=== PATIENT | male | born 1965 | race Caucasian/White ===

== ENCOUNTER → 2019-06-18 | Outpatient (CLI) | payer OTHER | END | disposition home or self-care (01) | LOC: HBOWC 07:43 | PROVIDERS: ATTEND Emergency Medicine | DX: T87.89 Other complications of amputation stump (principal); L98.492 Non-pressure chronic ulcer of skin of other sites with fat layer exposed; E78.5 Hyperlipidemia, unspecified; F12.10 Cannabis abuse, uncomplicated; F17.200 Nicotine dependence, unspecified, uncomplicated; Z86.73 Personal history of transient ischemic attack (TIA), and cerebral infarction without residual deficits; Z79.01 Long term (current) use of anticoagulants; Y83.5 Amputation of limb(s) as the cause of abnormal reaction of the patient, or of later complication, without mention of misadventure at the time of the procedure; Y92.89 Other specified places as the place of occurrence of the external cause | CPT/HCPCS: 11042 ==

== ENCOUNTER → 2019-06-25 | Outpatient (CLI) | payer OTHER ==
[~2019-06-25] MED LIST: LIDOCAINE 2% 5 ML JELLY TP ONE
== END | disposition home or self-care (01) ==
LOC: HBOWC 10:13
PROVIDERS: ATTEND Emergency Medicine
DX: T87.89 Other complications of amputation stump (principal); L98.492 Non-pressure chronic ulcer of skin of other sites with fat layer exposed; E78.5 Hyperlipidemia, unspecified; F12.10 Cannabis abuse, uncomplicated; F17.200 Nicotine dependence, unspecified, uncomplicated; Z86.73 Personal history of transient ischemic attack (TIA), and cerebral infarction without residual deficits; Z79.01 Long term (current) use of anticoagulants; Y83.5 Amputation of limb(s) as the cause of abnormal reaction of the patient, or of later complication, without mention of misadventure at the time of the procedure; Y92.89 Other specified places as the place of occurrence of the external cause
CPT/HCPCS: 11043

== ENCOUNTER → 2019-07-02 | Outpatient (CLI) | payer OTHER | END | disposition home or self-care (01) | LOC: HBOWC 10:00 | PROVIDERS: ATTEND Emergency Medicine | DX: T87.89 Other complications of amputation stump (principal); L98.492 Non-pressure chronic ulcer of skin of other sites with fat layer exposed; T23.022D Burn of unspecified degree of single left finger (nail) except thumb, subsequent encounter; E78.5 Hyperlipidemia, unspecified; F12.10 Cannabis abuse, uncomplicated; I96 Gangrene, not elsewhere classified; M86.8X4 Other osteomyelitis, hand; F17.200 Nicotine dependence, unspecified, uncomplicated; Z86.73 Personal history of transient ischemic attack (TIA), and cerebral infarction without residual deficits; Z79.01 Long term (current) use of anticoagulants; T31.0 Burns involving less than 10% of body surface; Y83.5 Amputation of limb(s) as the cause of abnormal reaction of the patient, or of later complication, without mention of misadventure at the time of the procedure; X08.8XXD Exposure to other specified smoke, fire and flames, subsequent encounter | CPT/HCPCS: 11042; 11045 ==

== ENCOUNTER → 2019-07-08 | Outpatient (CLI) | payer OTHER | END | disposition home or self-care (01) | LOC: HBOWC 10:17 | PROVIDERS: ATTEND Surgery Plastic and Reconstructive Surgery | DX: T87.89 Other complications of amputation stump (principal); L98.492 Non-pressure chronic ulcer of skin of other sites with fat layer exposed; T23.022D Burn of unspecified degree of single left finger (nail) except thumb, subsequent encounter; E78.5 Hyperlipidemia, unspecified; F12.10 Cannabis abuse, uncomplicated; I96 Gangrene, not elsewhere classified; M86.8X4 Other osteomyelitis, hand; F17.200 Nicotine dependence, unspecified, uncomplicated; Z86.73 Personal history of transient ischemic attack (TIA), and cerebral infarction without residual deficits; Z79.01 Long term (current) use of anticoagulants; T31.0 Burns involving less than 10% of body surface; Y83.5 Amputation of limb(s) as the cause of abnormal reaction of the patient, or of later complication, without mention of misadventure at the time of the procedure; X08.8XXD Exposure to other specified smoke, fire and flames, subsequent encounter | CPT/HCPCS: 11043 ==

== ENCOUNTER → 2019-07-23 | Outpatient (CLI) | payer OTHER | END | disposition home or self-care (01) | LOC: HBOWC 09:48 | PROVIDERS: ATTEND Emergency Medicine | DX: T87.89 Other complications of amputation stump (principal); L98.492 Non-pressure chronic ulcer of skin of other sites with fat layer exposed; T23.022D Burn of unspecified degree of single left finger (nail) except thumb, subsequent encounter; T31.0 Burns involving less than 10% of body surface; E78.5 Hyperlipidemia, unspecified; I73.01 Raynaud's syndrome with gangrene; M86.8X4 Other osteomyelitis, hand; F12.10 Cannabis abuse, uncomplicated; F17.200 Nicotine dependence, unspecified, uncomplicated; Z86.73 Personal history of transient ischemic attack (TIA), and cerebral infarction without residual deficits; Z79.01 Long term (current) use of anticoagulants; Z59.0 Homelessness; Y83.5 Amputation of limb(s) as the cause of abnormal reaction of the patient, or of later complication, without mention of misadventure at the time of the procedure; X08.8XXD Exposure to other specified smoke, fire and flames, subsequent encounter | CPT/HCPCS: 97597 ==

== ENCOUNTER → 2019-07-30 | Outpatient (CLI) | payer OTHER ==
[2019-08-01 15:08] LABS: GLUCOMETER DEV NAME(LOC) HBW.; GLUCOSE,POINT OF CARE 115 MG/DL (70-110)
== END | disposition home or self-care (01) ==
LOC: HBOWC 09:22
PROVIDERS: ATTEND Emergency Medicine
DX: T87.89 Other complications of amputation stump (principal); L98.492 Non-pressure chronic ulcer of skin of other sites with fat layer exposed; T23.022D Burn of unspecified degree of single left finger (nail) except thumb, subsequent encounter; T31.0 Burns involving less than 10% of body surface; E78.5 Hyperlipidemia, unspecified; I73.01 Raynaud's syndrome with gangrene; M86.8X4 Other osteomyelitis, hand; F12.10 Cannabis abuse, uncomplicated; F17.200 Nicotine dependence, unspecified, uncomplicated; Z86.73 Personal history of transient ischemic attack (TIA), and cerebral infarction without residual deficits; Z79.01 Long term (current) use of anticoagulants; Z59.0 Homelessness; Y83.5 Amputation of limb(s) as the cause of abnormal reaction of the patient, or of later complication, without mention of misadventure at the time of the procedure; X08.8XXD Exposure to other specified smoke, fire and flames, subsequent encounter
CPT/HCPCS: 11042

== ENCOUNTER → 2019-08-06 | Outpatient (CLI) | payer OTHER | END | disposition home or self-care (01) | LOC: HBOWC 10:05 | PROVIDERS: ATTEND Emergency Medicine | DX: T87.89 Other complications of amputation stump (principal); L98.492 Non-pressure chronic ulcer of skin of other sites with fat layer exposed; T23.022D Burn of unspecified degree of single left finger (nail) except thumb, subsequent encounter; T31.0 Burns involving less than 10% of body surface; E78.5 Hyperlipidemia, unspecified; I73.01 Raynaud's syndrome with gangrene; M86.641 Other chronic osteomyelitis, right hand; F12.10 Cannabis abuse, uncomplicated; F17.200 Nicotine dependence, unspecified, uncomplicated; Z86.73 Personal history of transient ischemic attack (TIA), and cerebral infarction without residual deficits; Z79.01 Long term (current) use of anticoagulants; Z59.0 Homelessness; Y83.5 Amputation of limb(s) as the cause of abnormal reaction of the patient, or of later complication, without mention of misadventure at the time of the procedure; X08.8XXD Exposure to other specified smoke, fire and flames, subsequent encounter | CPT/HCPCS: 11042 ==

== ENCOUNTER → 2019-08-12 | Outpatient (CLI) | payer OTHER | END | disposition home or self-care (01) | LOC: HBOWC 09:14 | PROVIDERS: ATTEND Surgery Plastic and Reconstructive Surgery | DX: T87.89 Other complications of amputation stump (principal); L98.492 Non-pressure chronic ulcer of skin of other sites with fat layer exposed; T23.022D Burn of unspecified degree of single left finger (nail) except thumb, subsequent encounter; T31.0 Burns involving less than 10% of body surface; E78.5 Hyperlipidemia, unspecified; I73.01 Raynaud's syndrome with gangrene; M86.641 Other chronic osteomyelitis, right hand; F12.10 Cannabis abuse, uncomplicated; F17.200 Nicotine dependence, unspecified, uncomplicated; Z86.73 Personal history of transient ischemic attack (TIA), and cerebral infarction without residual deficits; Z79.01 Long term (current) use of anticoagulants; Z59.0 Homelessness; Y83.5 Amputation of limb(s) as the cause of abnormal reaction of the patient, or of later complication, without mention of misadventure at the time of the procedure | CPT/HCPCS: 11043 ==

== ENCOUNTER → 2019-08-27 | Outpatient (CLI) | payer OTHER | END | disposition home or self-care (01) | LOC: HBOWC 09:14 | PROVIDERS: ATTEND Emergency Medicine | DX: T87.89 Other complications of amputation stump (principal); L98.492 Non-pressure chronic ulcer of skin of other sites with fat layer exposed; T23.022D Burn of unspecified degree of single left finger (nail) except thumb, subsequent encounter; T31.0 Burns involving less than 10% of body surface; E78.5 Hyperlipidemia, unspecified; I73.01 Raynaud's syndrome with gangrene; M86.641 Other chronic osteomyelitis, right hand; F12.10 Cannabis abuse, uncomplicated; F17.200 Nicotine dependence, unspecified, uncomplicated; Z86.73 Personal history of transient ischemic attack (TIA), and cerebral infarction without residual deficits; Z79.01 Long term (current) use of anticoagulants; Z59.0 Homelessness; Y83.5 Amputation of limb(s) as the cause of abnormal reaction of the patient, or of later complication, without mention of misadventure at the time of the procedure | CPT/HCPCS: 11042 ==

== ENCOUNTER → 2019-09-03 | Outpatient (CLI) | payer OTHER | END | disposition home or self-care (01) | LOC: HBOWC 09:07 | PROVIDERS: ATTEND Emergency Medicine | DX: T87.89 Other complications of amputation stump (principal); L98.492 Non-pressure chronic ulcer of skin of other sites with fat layer exposed; T23.022D Burn of unspecified degree of single left finger (nail) except thumb, subsequent encounter; T31.0 Burns involving less than 10% of body surface; E78.5 Hyperlipidemia, unspecified; I73.01 Raynaud's syndrome with gangrene; M86.641 Other chronic osteomyelitis, right hand; F12.10 Cannabis abuse, uncomplicated; F17.200 Nicotine dependence, unspecified, uncomplicated; Z86.73 Personal history of transient ischemic attack (TIA), and cerebral infarction without residual deficits; Z79.01 Long term (current) use of anticoagulants; Z59.0 Homelessness; Y83.5 Amputation of limb(s) as the cause of abnormal reaction of the patient, or of later complication, without mention of misadventure at the time of the procedure | CPT/HCPCS: 97597 ==

== ENCOUNTER → 2019-09-09 | Outpatient (CLI) | payer OTHER | END | disposition home or self-care (01) | LOC: HBOWC 11:04 | PROVIDERS: ATTEND Surgery Plastic and Reconstructive Surgery | DX: T87.89 Other complications of amputation stump (principal); L98.492 Non-pressure chronic ulcer of skin of other sites with fat layer exposed; T23.022D Burn of unspecified degree of single left finger (nail) except thumb, subsequent encounter; T31.0 Burns involving less than 10% of body surface; E78.5 Hyperlipidemia, unspecified; I73.01 Raynaud's syndrome with gangrene; M86.641 Other chronic osteomyelitis, right hand; F12.10 Cannabis abuse, uncomplicated; F17.200 Nicotine dependence, unspecified, uncomplicated; Z86.73 Personal history of transient ischemic attack (TIA), and cerebral infarction without residual deficits; Z79.01 Long term (current) use of anticoagulants; Z59.0 Homelessness; Y83.5 Amputation of limb(s) as the cause of abnormal reaction of the patient, or of later complication, without mention of misadventure at the time of the procedure | CPT/HCPCS: 11043 ==

== ENCOUNTER → 2019-09-17 | Outpatient (CLI) | payer OTHER | END | disposition home or self-care (01) | LOC: HBOWC 09:25 | PROVIDERS: ATTEND Emergency Medicine | DX: T87.89 Other complications of amputation stump (principal); L98.492 Non-pressure chronic ulcer of skin of other sites with fat layer exposed; S61.203D Unspecified open wound of left middle finger without damage to nail, subsequent encounter; E78.5 Hyperlipidemia, unspecified; I73.01 Raynaud's syndrome with gangrene; M86.641 Other chronic osteomyelitis, right hand; L84 Corns and callosities; F12.10 Cannabis abuse, uncomplicated; F17.200 Nicotine dependence, unspecified, uncomplicated; Z86.73 Personal history of transient ischemic attack (TIA), and cerebral infarction without residual deficits; Z79.01 Long term (current) use of anticoagulants; Z59.0 Homelessness; Y83.5 Amputation of limb(s) as the cause of abnormal reaction of the patient, or of later complication, without mention of misadventure at the time of the procedure; X58.XXXD Exposure to other specified factors, subsequent encounter | CPT/HCPCS: 11042 ==

== ENCOUNTER → 2019-09-23 | Outpatient (CLI) | payer OTHER | END | disposition home or self-care (01) | LOC: HBOWC 10:00 | PROVIDERS: ATTEND Surgery Plastic and Reconstructive Surgery | DX: T87.89 Other complications of amputation stump (principal); L98.492 Non-pressure chronic ulcer of skin of other sites with fat layer exposed; S61.203D Unspecified open wound of left middle finger without damage to nail, subsequent encounter; E78.5 Hyperlipidemia, unspecified; I73.01 Raynaud's syndrome with gangrene; M86.641 Other chronic osteomyelitis, right hand; L84 Corns and callosities; F12.10 Cannabis abuse, uncomplicated; F17.200 Nicotine dependence, unspecified, uncomplicated; Z86.73 Personal history of transient ischemic attack (TIA), and cerebral infarction without residual deficits; Z79.01 Long term (current) use of anticoagulants; Z59.0 Homelessness; X58.XXXD Exposure to other specified factors, subsequent encounter; Y83.5 Amputation of limb(s) as the cause of abnormal reaction of the patient, or of later complication, without mention of misadventure at the time of the procedure | CPT/HCPCS: 11043 ==

== ENCOUNTER → 2019-10-01 | Outpatient (CLI) | payer OTHER | END | disposition home or self-care (01) | LOC: HBOWC 09:07 | PROVIDERS: ATTEND Emergency Medicine | DX: T87.89 Other complications of amputation stump (principal); L98.492 Non-pressure chronic ulcer of skin of other sites with fat layer exposed; S61.203D Unspecified open wound of left middle finger without damage to nail, subsequent encounter; E78.5 Hyperlipidemia, unspecified; E11.69 Type 2 diabetes mellitus with other specified complication; M86.641 Other chronic osteomyelitis, right hand; L84 Corns and callosities; E11.52 Type 2 diabetes mellitus with diabetic peripheral angiopathy with gangrene; I73.01 Raynaud's syndrome with gangrene; F12.10 Cannabis abuse, uncomplicated; F17.200 Nicotine dependence, unspecified, uncomplicated; Z86.73 Personal history of transient ischemic attack (TIA), and cerebral infarction without residual deficits; Z79.01 Long term (current) use of anticoagulants; Z59.0 Homelessness; Z79.82 Long term (current) use of aspirin; X58.XXXD Exposure to other specified factors, subsequent encounter; Y83.5 Amputation of limb(s) as the cause of abnormal reaction of the patient, or of later complication, without mention of misadventure at the time of the procedure | CPT/HCPCS: 11042 ==

== ENCOUNTER → 2019-10-08 | Outpatient (CLI) | payer OTHER | END | disposition home or self-care (01) | LOC: HBOWC 09:03 | PROVIDERS: ATTEND Emergency Medicine | DX: T87.81 Dehiscence of amputation stump (principal); L98.492 Non-pressure chronic ulcer of skin of other sites with fat layer exposed; S61.203D Unspecified open wound of left middle finger without damage to nail, subsequent encounter; E78.5 Hyperlipidemia, unspecified; M86.641 Other chronic osteomyelitis, right hand; I73.01 Raynaud's syndrome with gangrene; L84 Corns and callosities; F12.10 Cannabis abuse, uncomplicated; F17.200 Nicotine dependence, unspecified, uncomplicated; Z86.73 Personal history of transient ischemic attack (TIA), and cerebral infarction without residual deficits; Z79.01 Long term (current) use of anticoagulants; Z79.82 Long term (current) use of aspirin; Z59.0 Homelessness; X58.XXXD Exposure to other specified factors, subsequent encounter; Y83.5 Amputation of limb(s) as the cause of abnormal reaction of the patient, or of later complication, without mention of misadventure at the time of the procedure | CPT/HCPCS: 11042 ==

== ENCOUNTER → 2019-10-22 | Outpatient (CLI) | payer OTHER | END | disposition home or self-care (01) | LOC: HBOWC 09:00 | PROVIDERS: ATTEND Emergency Medicine | DX: T87.81 Dehiscence of amputation stump (principal); E11.622 Type 2 diabetes mellitus with other skin ulcer; L98.492 Non-pressure chronic ulcer of skin of other sites with fat layer exposed; S61.203D Unspecified open wound of left middle finger without damage to nail, subsequent encounter; E78.5 Hyperlipidemia, unspecified; E11.69 Type 2 diabetes mellitus with other specified complication; M86.641 Other chronic osteomyelitis, right hand; E11.52 Type 2 diabetes mellitus with diabetic peripheral angiopathy with gangrene; I73.01 Raynaud's syndrome with gangrene; L84 Corns and callosities; F12.10 Cannabis abuse, uncomplicated; F17.200 Nicotine dependence, unspecified, uncomplicated; Z79.01 Long term (current) use of anticoagulants; Z79.82 Long term (current) use of aspirin; Z86.73 Personal history of transient ischemic attack (TIA), and cerebral infarction without residual deficits; Z59.0 Homelessness; X58.XXXD Exposure to other specified factors, subsequent encounter; Y83.5 Amputation of limb(s) as the cause of abnormal reaction of the patient, or of later complication, without mention of misadventure at the time of the procedure ==

== ENCOUNTER → 2019-11-05 | Outpatient (CLI) | payer OTHER | END | disposition home or self-care (01) | LOC: HBOWC 09:18 | PROVIDERS: ATTEND Emergency Medicine | DX: T87.81 Dehiscence of amputation stump (principal); E11.622 Type 2 diabetes mellitus with other skin ulcer; L98.492 Non-pressure chronic ulcer of skin of other sites with fat layer exposed; S61.203D Unspecified open wound of left middle finger without damage to nail, subsequent encounter; E78.5 Hyperlipidemia, unspecified; E11.69 Type 2 diabetes mellitus with other specified complication; M86.641 Other chronic osteomyelitis, right hand; E11.52 Type 2 diabetes mellitus with diabetic peripheral angiopathy with gangrene; I73.01 Raynaud's syndrome with gangrene; L84 Corns and callosities; F12.10 Cannabis abuse, uncomplicated; F17.200 Nicotine dependence, unspecified, uncomplicated; Z79.01 Long term (current) use of anticoagulants; Z79.82 Long term (current) use of aspirin; Z86.73 Personal history of transient ischemic attack (TIA), and cerebral infarction without residual deficits; Z59.0 Homelessness; X58.XXXD Exposure to other specified factors, subsequent encounter; Y83.5 Amputation of limb(s) as the cause of abnormal reaction of the patient, or of later complication, without mention of misadventure at the time of the procedure | CPT/HCPCS: 11042 ==

== ENCOUNTER → 2019-11-13 | Outpatient (CLI) | payer OTHER | END | disposition home or self-care (01) | LOC: HBOWC 08:57 | PROVIDERS: ATTEND Internal Medicine | DX: T87.81 Dehiscence of amputation stump (principal); E11.622 Type 2 diabetes mellitus with other skin ulcer; L98.492 Non-pressure chronic ulcer of skin of other sites with fat layer exposed; S61.203D Unspecified open wound of left middle finger without damage to nail, subsequent encounter; E78.5 Hyperlipidemia, unspecified; E11.69 Type 2 diabetes mellitus with other specified complication; M86.641 Other chronic osteomyelitis, right hand; E11.52 Type 2 diabetes mellitus with diabetic peripheral angiopathy with gangrene; I73.01 Raynaud's syndrome with gangrene; L84 Corns and callosities; F12.10 Cannabis abuse, uncomplicated; F17.200 Nicotine dependence, unspecified, uncomplicated; Z79.01 Long term (current) use of anticoagulants; Z79.82 Long term (current) use of aspirin; Z86.73 Personal history of transient ischemic attack (TIA), and cerebral infarction without residual deficits; Z59.0 Homelessness; Y83.5 Amputation of limb(s) as the cause of abnormal reaction of the patient, or of later complication, without mention of misadventure at the time of the procedure ==

== ENCOUNTER → 2019-11-26 | Outpatient (CLI) | payer OTHER | END | disposition home or self-care (01) | LOC: HBOWC 09:04 | PROVIDERS: ATTEND Emergency Medicine | DX: T87.81 Dehiscence of amputation stump (principal); E11.622 Type 2 diabetes mellitus with other skin ulcer; L98.492 Non-pressure chronic ulcer of skin of other sites with fat layer exposed; S61.203D Unspecified open wound of left middle finger without damage to nail, subsequent encounter; E78.5 Hyperlipidemia, unspecified; E11.69 Type 2 diabetes mellitus with other specified complication; M86.641 Other chronic osteomyelitis, right hand; E11.52 Type 2 diabetes mellitus with diabetic peripheral angiopathy with gangrene; I73.01 Raynaud's syndrome with gangrene; L84 Corns and callosities; F12.10 Cannabis abuse, uncomplicated; F17.200 Nicotine dependence, unspecified, uncomplicated; Z79.01 Long term (current) use of anticoagulants; Z79.82 Long term (current) use of aspirin; Z86.73 Personal history of transient ischemic attack (TIA), and cerebral infarction without residual deficits; Z59.0 Homelessness; Y83.5 Amputation of limb(s) as the cause of abnormal reaction of the patient, or of later complication, without mention of misadventure at the time of the procedure | CPT/HCPCS: 11042 ==

== ENCOUNTER → 2019-12-03 | Outpatient (CLI) | payer OTHER | END | disposition home or self-care (01) | LOC: HBOWC 08:44 | PROVIDERS: ATTEND Emergency Medicine | DX: S61.203A Unspecified open wound of left middle finger without damage to nail, initial encounter (principal); M18.9 Osteoarthritis of first carpometacarpal joint, unspecified; M86.641 Other chronic osteomyelitis, right hand; M79.9 Soft tissue disorder, unspecified; X58.XXXA Exposure to other specified factors, initial encounter; Y93.89 Activity, other specified; Y92.89 Other specified places as the place of occurrence of the external cause; Y99.8 Other external cause status ==

== ENCOUNTER → 2019-12-10 | Outpatient (CLI) | payer OTHER | END | disposition home or self-care (01) | LOC: HBOWC 10:05 | PROVIDERS: ATTEND Emergency Medicine | DX: T87.81 Dehiscence of amputation stump (principal); E11.622 Type 2 diabetes mellitus with other skin ulcer; L98.492 Non-pressure chronic ulcer of skin of other sites with fat layer exposed; S61.203D Unspecified open wound of left middle finger without damage to nail, subsequent encounter; E78.5 Hyperlipidemia, unspecified; E11.69 Type 2 diabetes mellitus with other specified complication; M86.641 Other chronic osteomyelitis, right hand; E11.52 Type 2 diabetes mellitus with diabetic peripheral angiopathy with gangrene; I73.01 Raynaud's syndrome with gangrene; M18.9 Osteoarthritis of first carpometacarpal joint, unspecified; L84 Corns and callosities; F12.10 Cannabis abuse, uncomplicated; F17.200 Nicotine dependence, unspecified, uncomplicated; Z79.01 Long term (current) use of anticoagulants; Z79.82 Long term (current) use of aspirin; Z86.73 Personal history of transient ischemic attack (TIA), and cerebral infarction without residual deficits; Z59.0 Homelessness; Y83.5 Amputation of limb(s) as the cause of abnormal reaction of the patient, or of later complication, without mention of misadventure at the time of the procedure ==

== ENCOUNTER → 2020-01-07 | Outpatient (CLI) | payer OTHER | END | disposition home or self-care (01) | LOC: HBOWC 10:01 | PROVIDERS: ATTEND Emergency Medicine | DX: E11.622 Type 2 diabetes mellitus with other skin ulcer (principal); L98.491 Non-pressure chronic ulcer of skin of other sites limited to breakdown of skin; S61.203D Unspecified open wound of left middle finger without damage to nail, subsequent encounter; E78.5 Hyperlipidemia, unspecified; E11.69 Type 2 diabetes mellitus with other specified complication; M86.641 Other chronic osteomyelitis, right hand; E11.52 Type 2 diabetes mellitus with diabetic peripheral angiopathy with gangrene; I73.01 Raynaud's syndrome with gangrene; M18.9 Osteoarthritis of first carpometacarpal joint, unspecified; L84 Corns and callosities; F12.10 Cannabis abuse, uncomplicated; F17.200 Nicotine dependence, unspecified, uncomplicated; Z79.01 Long term (current) use of anticoagulants; Z79.82 Long term (current) use of aspirin; Z86.73 Personal history of transient ischemic attack (TIA), and cerebral infarction without residual deficits; Z59.0 Homelessness; Y83.5 Amputation of limb(s) as the cause of abnormal reaction of the patient, or of later complication, without mention of misadventure at the time of the procedure ==

== ENCOUNTER 2020-11-28 20:10 | Inpatient (IN) | payer OTHER ==
[~2020-11-28] VITALS: Ht 170.2 cm; Wt 84.0 kg
[2020-11-28] MEDS ORDERED: 0.9% SODIUM CHLORIDE 10 ML SYRINGE IVP PRN (21:15)
[2020-11-28 22:03] LABS: HEMATOCRIT 39.9 % (41-53); HEMOGLOBIN 11.8 g/dL (13.5-17.5); MEAN CORPUSCULAR HEMOGLOBIN 22.2 pg (26.0-34.0); MEAN CORPUSCULAR HGB CONC 29.6 G/dL (31.0-37.0); MEAN CORPUSCULAR VOLUME 75 fL (80-100); PLATELET COUNT (AUTO) 142 K/uL (150-450); RED BLOOD CELL COUNT(AUTO) 5.31 MIL/uL (4.50-5.90); RED CELL DISTRIBUTION WIDTH 31.7 % (11.5-14.5)
[2020-11-28 22:21] LABS: D-DIMER 16.93 mg/L FEU (0.00-0.50); PROTHROMBIN TIME 39.7 SEC (9.4-11.6)
[2020-11-28 22:23] LABS: LACTIC ACID 6.6 mmol/L (0.4-2.0)
[2020-11-28 22:24] LABS: INR 4.2 (0.9-1.1)
[2020-11-28 22:29] LABS: BAND NEUTROPHILS % (MANUAL) 2 % (0-5); LYMPHOCYTES % (MANUAL) 9 % (22-44); MONOCYTES % (MANUAL) 5 % (2-9); SEGMENTED NEUTROPHILS % 84 % (40-70); WBC MORPHOLOGY TOXIC VACUOLATION
[2020-11-28 22:34] LABS: ALANINE AMINOTRANSFERASE 464 U/L (12-78); ALBUMIN 2.5 g/dL (3.4-5.0); ALKALINE PHOSPHATASE 192 U/L (46-116); ANION GAP 19 mmol/L (8-16); BILIRUBIN,TOTAL 11.6 mg/dL (0.1-1.0); CALCIUM, TOTAL 8.6 mg/dL (8.8-10.5); CARBON DIOXIDE 26 mmol/L (22-29); CHLORIDE 85 mmol/L (98-107); CREATINE KINASE, TOTAL ONLY 480 U/L (39-308); CREATININE 2.55 mg/dL (0.60-1.30); GLOMERULAR FILTR. RATE CALC 26 mL/min (>60); GLUCOSE,RANDOM 101 mg/dL (70-110); SODIUM SERUM 130 mmol/L (136-145); TOTAL PROTEIN, SERUM 6.3 g/dL (6.4-8.2); UREA NITROGEN, BLOOD 94 mg/dL (7-18)
[2020-11-28 22:36] LABS: ASPARTATE AMINOTRANSFERASE 1130 U/L (15-37); POTASSIUM 6.2 mmol/L (3.5-5.1)
[2020-11-28 22:39] LABS: COVID AG,FIA SOURCE NASOPHARYNGEAL
[2020-11-28] MEDS ORDERED: FUROSEMIDE 40 MG/4 ML VIAL IVP ONE (22:45)
[2020-11-28] MEDS ORDERED: VANCOMYCIN HCL 1.5 GM in DEXTROSE 5%-WATER 250 ML IV ONE (22:45)
[2020-11-28] MEDS ORDERED: INSULIN REGULAR, HUMAN 100 UNITS/ML IVP ONE (22:45)
[2020-11-28] MEDS ORDERED: DEXTROSE 50%-WATER 25 GM/50 ML SYRINGE IVP ONE (22:45)
[2020-11-28] MEDS ORDERED: CALCIUM GLUCONATE 0.465 MEQ/ML 10 ML VIAL IVP ONE (22:45)
[2020-11-28] MEDS ORDERED: SODIUM BICARBONATE [ADULT] 8.4% 50 MEQ/50 ML SYRINGE IVP ONE (22:45)
[2020-11-28] MEDS ORDERED: PIPERACILLIN/TAZO 3.375 GM/D5W 50 ML IV ONE (23:00)
[2020-11-28] MEDS ORDERED: SODIUM CHLORIDE 0.9% 250 ML IV ONE (23:00)
[2020-11-28 23:10] LABS: ACETAMINOPHEN < 2 mcg/mL (10-30); DIGOXIN 1.66 ng/mL (0.90-2.00); FREE T4 (FREE THYROXINE) 1.23 ng/dL (0.76-1.46); THYROID STIMULATING HORMONE 9.34 uIU/mL (0.36-3.74)
[2020-11-28 23:11] LABS: B-TYPE NATRIURETIC PEPTIDE 2650 pg/mL (0-100)
[2020-11-28 23:13] LABS: SALICYLATE < 2.8 mg/dL (2.8-20.0)
[2020-11-28 23:13] LABS: INFLUENZA TYPE A NEGATIVE FOR TYPE A (NEGATIVE); INFLUENZA TYPE B NEGATIVE FOR TYPE B (NEGATIVE)
[2020-11-28 23:58] LABS: APPEARANCE,URINE CLOUDY (CLEAR); GLUCOSE, URINE (UA) NEGATIVE (NEGATIVE); KETONES,URINE TRACE mg/dL (NEGATIVE); LEUKOCYTE ESTERASE ,URINE NEGATIVE (NEGATIVE); NITRATE,URINE NEGATIVE (NEGATIVE); OCCULT BLOOD,URINE TRACE (NEGATIVE); PROTEIN,URINE NEGATIVE (NEGATIVE)
[2020-11-29] VITALS (9 sets, daily range): BP systolic 90–124; BP diastolic 51–68
[2020-11-29 00:03] LABS: AMPHET/METH SCREEN,URINE NEGATIVE (NEGATIVE); BARBITURATE SCREEN, URINE NEGATIVE (NEGATIVE); BENZODIAZEPINES SCREEN,URINE NEGATIVE (NEGATIVE); CANNABINOID SCREEN,URINE NEGATIVE (NEGATIVE); COCAINE SCREEN,URINE NEGATIVE (NEGATIVE); METHADONE SCREEN, URINE NEGATIVE (NEGATIVE); OPIATE SCREEN,URINE NEGATIVE (NEGATIVE)
[2020-11-29 00:04] LABS: BILIRUBIN,URINE PRELIM. POSITIVE (NEGATIVE); PHENCYCLIDINE SCREEN,URINE NEGATIVE (NEGATIVE)
[2020-11-29 00:17] LABS: BACTERIA,URINE Few /HPF (None Seen); RBC,URINE 0-2 /HPF (0-2)
[2020-11-29] MEDS ORDERED: ALBUTEROL SULFATE 5 MG/ML 20 ML NEB SOLN [BULK] NEB ONE (00:30)
[2020-11-29] MEDS ORDERED: SODIUM CHLORIDE 0.9% 250 ML IV ONE ×2 (00:30→23:15)
[2020-11-29] MEDS ORDERED: 0.9% SODIUM CHLORIDE 5 ML NEB SOLUTION NEB ONE (01:18)
[2020-11-29 02:21] LABS: CALCIUM, TOTAL 8.5 mg/dL (8.8-10.5); CREATININE 2.61 mg/dL (0.60-1.30); POTASSIUM 5.8 mmol/L (3.5-5.1)
[2020-11-29] MEDS ORDERED: DEXTROSE 50%-WATER 25 GM/50 ML SYRINGE IVP ONE (03:45)
[2020-11-29] MEDS ORDERED: INSULIN REGULAR, HUMAN 100 UNITS/ML IVP ONE (03:45)
[2020-11-29] MEDS ORDERED: NOREPINEPHRINE 4 MG/D5%-WATER 250 ML IV PRN (04:00)
[2020-11-29] MEDS ORDERED: SODIUM CHLORIDE 0.9% 2,300 ML IV ONE (04:00)
[2020-11-29] MEDS ORDERED: SODIUM POLYSTYRENE SULFONATE 15 GM/60 ML SUSPENSION BOTTLE PO ONE (04:00)
[2020-11-29] MEDS ORDERED: LACTULOSE 20 GM/30 ML SOLUTION UDCUP PO ONE (04:00)
[2020-11-29] MEDS ORDERED: PANT-31 PO (04:44)
[2020-11-29] MEDS ORDERED: SENN8.6T20 PO (04:44)
[2020-11-29] MEDS ORDERED: DULO-8 PO (04:44)
[2020-11-29] MEDS ORDERED: ONDA-104 PO (04:44)
[2020-11-29] MEDS ORDERED: MIRT-89 PO (04:44)
[2020-11-29] MEDS ORDERED: METO50 PO (04:44)
[2020-11-29] MEDS ORDERED: OLAN5TAB2 PO (04:44)
[2020-11-29] MEDS ORDERED: LIDO700A15 TP (04:44)
[2020-11-29] MEDS ORDERED: DIGO125T84 PO (04:44)
[2020-11-29] MEDS ORDERED: ACET-784 PO (04:44)
[2020-11-29] MEDS ORDERED: CEFU250T58 PO (04:44)
[2020-11-29] MEDS ORDERED: SILDENAFIL 20 MG CONTEPI (04:44)
[2020-11-29] MEDS ORDERED: BUME1TAB34 PO (04:44)
[2020-11-29] MEDS ORDERED: PHYTONADIONE 10 MG/1 ML AMP SQ ONE (04:45)
[2020-11-29] MEDS ORDERED: 0.9% SODIUM CHLORIDE 10 ML SYRINGE IVP PRN (04:45)
[2020-11-29] MEDS ORDERED: ONDANSETRON HCL 4 MG/2 ML VIAL IVP PRN (04:45)
[2020-11-29] MEDS ORDERED: ACETAMINOPHEN 325 MG TABLET PO PRN (04:45)
[2020-11-29] MEDS ORDERED: WARFARIN CHEW (06:36)
[2020-11-29] MEDS ORDERED: LEVO25TA9 PO (06:36)
[2020-11-29 07:50] LABS: INR 3.8 (0.9-1.1); PROTHROMBIN TIME 36.2 SEC (9.4-11.6)
[2020-11-29 07:58] LABS: CREATININE 2.49 mg/dL (0.60-1.30); POTASSIUM 4.2 mmol/L (3.5-5.1)
[2020-11-29] MEDS ORDERED: VANCOMYCIN HCL 750 MG in DEXTROSE 5%-WATER 250 ML IV SCH (08:00)
[2020-11-29] MEDS: PANTOPRAZOLE SODIUM 40 MG/VIAL IVP SCH (09:50)
[2020-11-29] MEDS: PIPERACILLIN/TAZO 3.375 GM/D5W 50 ML IV SCH ×3 (11:00→23:17)
[2020-11-29] MEDS ORDERED: SODIUM CHLORIDE 0.9% 500 ML IV ONE ×2 (12:53→23:00)
[2020-11-29] MEDS ORDERED: WARF1TAB9 PO (12:56)
[2020-11-29] MEDS ORDERED: SILD20TA PO (12:56)
[2020-11-29] MEDS: LEVOTHYROXINE SODIUM 25 MCG TABLET PO SCH (13:30)
[2020-11-29] MEDS: LACTULOSE 20 GM/30 ML SOLUTION UDCUP PO SCH ×5 (14:00→22:00)
[2020-11-29 16:06] LABS: ALANINE AMINOTRANSFERASE 545 U/L (12-78); ALBUMIN 2.4 g/dL (3.4-5.0); ALKALINE PHOSPHATASE 184 U/L (46-116); ANION GAP 15 mmol/L (8-16); BILIRUBIN,TOTAL 11.4 mg/dL (0.1-1.0); CALCIUM, TOTAL 8.1 mg/dL (8.8-10.5); CARBON DIOXIDE 23 mmol/L (22-29); CHLORIDE 92 mmol/L (98-107); CREATININE 2.11 mg/dL (0.60-1.30); GLOMERULAR FILTR. RATE CALC 33 mL/min (>60); GLUCOSE,RANDOM 139 mg/dL (70-110); LIPASE 171 U/L (73-393); PHOSPHORUS 4.5 mg/dL (2.5-4.9); POTASSIUM 3.9 mmol/L (3.5-5.1); SODIUM SERUM 130 mmol/L (136-145); UREA NITROGEN, BLOOD 85 mg/dL (7-18)
[2020-11-29 16:08] LABS: ASPARTATE AMINOTRANSFERASE 1166 U/L (15-37)
[2020-11-29 16:09] LABS: ACETAMINOPHEN < 2 mcg/mL (10-30)
[2020-11-29 22:43] LABS: LACTIC ACID 5.5 mmol/L (0.4-2.0)
[2020-11-29] MEDS ORDERED: SODIUM CHLORIDE 0.9% 1,000 ML IV ONE (23:00)
[2020-11-30] VITALS: BP 110/60
[2020-11-30] MEDS: LACTULOSE 20 GM/30 ML SOLUTION UDCUP PO SCH ×8 (02:00→21:16)
[2020-11-30 04:00] VITALS: BP_SYST 151; BP_SYST 98; BP_DIAS 54; BP_DIAS 78
[2020-11-30] MEDS: PIPERACILLIN/TAZO 3.375 GM/D5W 50 ML IV SCH ×4 (05:50→23:22)
[2020-11-30] MEDS: LEVOTHYROXINE SODIUM 25 MCG TABLET PO SCH (06:10)
[2020-11-30 06:36] LABS: BASOPHILS % (AUTO) 0.4 % (0.0-2.0); EOSINOPHILS % (AUTO) 0.2 % (1.0-6.0); HEMATOCRIT 37.1 % (41-53); HEMOGLOBIN 11.1 g/dL (13.5-17.5); LYMPHOCYTES # (AUTO) 0.6 K/uL (1.0-4.8); LYMPHOCYTES % (AUTO) 5.9 % (22.0-44.0); MEAN CORPUSCULAR HEMOGLOBIN 22.4 pg (26.0-34.0); MEAN CORPUSCULAR HGB CONC 29.9 G/dL (31.0-37.0); MEAN CORPUSCULAR VOLUME 75 fL (80-100); MONOCYTES # (AUTO) 0.9 K/uL (0.1-1.0); MONOCYTES % (AUTO) 8.5 % (2.0-9.0); NEUTROPHILS # (AUTO) 8.9 K/uL (1.8-7.7); PLATELET COUNT (AUTO) 103 K/uL (150-450); RED BLOOD CELL COUNT(AUTO) 4.95 MIL/uL (4.50-5.90); RED CELL DISTRIBUTION WIDTH 32.5 % (11.5-14.5)
[2020-11-30 06:57] LABS: % IRON SATURATION 5.4 % (30-44)
[2020-11-30 07:04] LABS: INR 2.3 (0.9-1.1); PROTHROMBIN TIME 23.2 SEC (9.4-11.6)
[2020-11-30 07:08] LABS: ALBUMIN 2.3 g/dL (3.4-5.0); CALCIUM, TOTAL 8.3 mg/dL (8.8-10.5); CREATININE 1.7 mg/dL (0.60-1.30); POTASSIUM 3.3 mmol/L (3.5-5.1); TOTAL PROTEIN, SERUM 6.1 g/dL (6.4-8.2)
[2020-11-30 08:00] VITALS: BP 85/57
[2020-11-30] MEDS: PANTOPRAZOLE SODIUM 40 MG/VIAL IVP SCH (08:33)
[2020-11-30] MEDS: VANCOMYCIN HCL 500 MG in DEXTROSE 5%-WATER 100 ML IV SCH ×2 (09:07→21:16)
[2020-11-30] MEDS ORDERED: MIDODRINE HCL 5 MG TABLET PO PRN (09:15)
[2020-11-30] MEDS: POTASSIUM CHL 10 MEQ/WATER 50 ML IV SCH ×3 (10:14→12:37)
[2020-11-30 10:56] LABS: BILIRUBIN,DIRECT 8.2 mg/dL (0.00-0.20)
[2020-11-30 12:00] VITALS: BP 122/63
[2020-11-30] MEDS: FentaNYL CITRATE PF 100 MCG/2 ML VIAL IVP PRN (14:02)
[2020-11-30] MEDS: ALBUMIN HUMAN 25%-25GM/100ML 100 ML IV SCH ×2 (14:06→21:16)
[2020-11-30 16:00] VITALS: BP 113/75
[2020-11-30 20:00] VITALS: BP 116/77
[2020-11-30] MEDS ORDERED: SODIUM CHLORIDE 0.9% 250 ML IV ONE (21:14)
[2020-12-01] VITALS: BP 109/68
[2020-12-01] MEDS: ALBUMIN HUMAN 25%-25GM/100ML 100 ML IV SCH ×3 (02:05→14:00)
[2020-12-01 04:00] VITALS: BP 115/62
[2020-12-01] MEDS: PIPERACILLIN/TAZO 3.375 GM/D5W 50 ML IV SCH ×2 (04:02→12:36)
[2020-12-01] MEDS: FentaNYL CITRATE PF 100 MCG/2 ML VIAL IVP PRN ×2 (04:03→10:49)
[2020-12-01] MEDS: LEVOTHYROXINE SODIUM 25 MCG TABLET PO SCH (06:38)
[2020-12-01 08:00] VITALS: BP 133/79
[2020-12-01] MEDS: VANCOMYCIN HCL 500 MG in DEXTROSE 5%-WATER 100 ML IV SCH (08:23)
[2020-12-01] MEDS ORDERED: LACTULOSE 20 GM/30 ML SOLUTION UDCUP PO SCH (09:00)
[2020-12-01] MEDS: PANTOPRAZOLE SODIUM 40 MG/VIAL IVP SCH (10:49)
[2020-12-01 11:03] LABS: BASOPHILS % (AUTO) 0.3 % (0.0-2.0); EOSINOPHILS % (AUTO) 0.2 % (1.0-6.0); HEMATOCRIT 37.8 % (41-53); LYMPHOCYTES # (AUTO) 0.6 K/uL (1.0-4.8); LYMPHOCYTES % (AUTO) 6.9 % (22.0-44.0); MEAN CORPUSCULAR HEMOGLOBIN 22.4 pg (26.0-34.0); MEAN CORPUSCULAR HGB CONC 29.1 G/dL (31.0-37.0); MEAN CORPUSCULAR VOLUME 77 fL (80-100); MONOCYTES # (AUTO) 0.7 K/uL (0.1-1.0); MONOCYTES % (AUTO) 7.7 % (2.0-9.0); NEUTROPHILS # (AUTO) 7.8 K/uL (1.8-7.7); NEUTROPHILS % (AUTO) 84.9 % (40.0-70.0); PLATELET COUNT (AUTO) 97 K/uL (150-450)
[2020-12-01 11:09] LABS: INR 2.2 (0.9-1.1); PROTHROMBIN TIME 21.8 SEC (9.4-11.6)
[2020-12-01 11:34] LABS: BILIRUBIN,DIRECT 9.2 mg/dL (0.00-0.20); BILIRUBIN,TOTAL 12.1 mg/dL (0.1-1.0); CALCIUM, TOTAL 8.7 mg/dL (8.8-10.5); CREATININE 1.5 mg/dL (0.60-1.30); MAGNESIUM 2.1 mg/dL (1.80-2.40); POTASSIUM 4.3 mmol/L (3.5-5.1); TOTAL PROTEIN, SERUM 6.5 g/dL (6.4-8.2); VANCOMYCIN,RANDOM 39.1 mcg/mL (25.0-50.0)
[2020-12-01 12:00] VITALS: BP 109/66
[2020-12-01] MEDS ORDERED: DiphenhydrAMINE HCL 50 MG/ML VIAL IVP PRN (14:00)
[2020-12-01] MEDS ORDERED: ONDANSETRON HCL 4 MG/2 ML VIAL IVP PRN (14:00)
[2020-12-01] MEDS: MORPHINE SULFATE 100 MG/NS/PF 100 ML IV PRN (14:48)
[2020-12-01 15:47] VITALS: BP 116/71
[2020-12-01] MEDS ORDERED: SODIUM CHLORIDE 0.9% 0 ML IV ONE (15:47)
[2020-12-01 19:42] VITALS: BP 129/75
[2020-12-02 00:02] VITALS: BP 133/97
[2020-12-02 04:24] VITALS: BP 136/100
[2020-12-02 05:07] LABS: HIV 1-2 SCREEN 4TH GEN W/RFLX Non Reactive (Non Reactive)
[2020-12-02 08:00] VITALS: BP 128/86
[2020-12-02] MEDS: MORPHINE SULFATE 100 MG/NS/PF 100 ML IV PRN (11:19)
[2020-12-05] MEDS ORDERED: SCOPOLAMINE HYDROBROMIDE 1 MG/72 HOUR PATCH TD SCH (09:00)
== END 2020-12-02 17:00 | DRG 720 ==
LOC: EMS 20:12 → ICU 11-29 03:55 → 6N 12-01 15:30
PROVIDERS: ADMIT Internal Medicine; ATTEND Internal Medicine
PROC: 30233K1 Transfusion of Nonautologous Frozen Plasma into Peripheral Vein, Percutaneous Approach (ICD-10-PCS; principal; 2020-11-29)
DX: A41.9 Sepsis, unspecified organism (principal); J96.01 Acute respiratory failure with hypoxia; K76.7 Hepatorenal syndrome; R65.21 Severe sepsis with septic shock; G92 Toxic encephalopathy; I13.0 Hypertensive heart and chronic kidney disease with heart failure and stage 1 through stage 4 chronic kidney disease, or unspecified chronic kidney disease; E27.8 Other specified disorders of adrenal gland; I27.20 Pulmonary hypertension, unspecified; J18.9 Pneumonia, unspecified organism; I50.42 Chronic combined systolic (congestive) and diastolic (congestive) heart failure; Z66 Do not resuscitate; Z51.5 Encounter for palliative care; I46.9 Cardiac arrest, cause unspecified; I51.3 Intracardiac thrombosis, not elsewhere classified; K92.2 Gastrointestinal hemorrhage, unspecified; F12.90 Cannabis use, unspecified, uncomplicated; D50.9 Iron deficiency anemia, unspecified; N17.9 Acute kidney failure, unspecified; E03.9 Hypothyroidism, unspecified; E87.6 Hypokalemia; F15.10 Other stimulant abuse, uncomplicated; I25.10 Atherosclerotic heart disease of native coronary artery without angina pectoris; K70.10 Alcoholic hepatitis without ascites; I73.00 Raynaud's syndrome without gangrene; E87.5 Hyperkalemia; K70.40 Alcoholic hepatic failure without coma; I48.91 Unspecified atrial fibrillation; F10.10 Alcohol abuse, uncomplicated; K21.9 Gastro-esophageal reflux disease without esophagitis; E87.1 Hypo-osmolality and hyponatremia; K70.30 Alcoholic cirrhosis of liver without ascites; Z20.822 Contact with and (suspected) exposure to COVID-19; Z95.1 Presence of aortocoronary bypass graft; Z87.01 Personal history of pneumonia (recurrent); Z79.899 Other long term (current) drug therapy; Z86.73 Personal history of transient ischemic attack (TIA), and cerebral infarction without residual deficits; Z95.3 Presence of xenogenic heart valve
CPT/HCPCS: 71250; 72192; 74150; 76705; 80074; 82105; 82247; 82248; 82728; 82784; 83516; 83540; 83550; 83605; 83735; 84100; 84145; 84439; 84443; 85379; 85384; 86706; 86707; 86850; 86900; 86901; 86927; 87040; 87081; 87340; 87350; 87389; 87426; 87804; 93005; 93306; 93971; 94640; 99291; C9113; G0378; G0480; G0481; J0610; J1815; J1940; J2270; J2543; J3010; J3370; J3480; J3490; J7030; J7040; J7050; J7060; P9017; P9046; 36415-L1; 36415-TC; 71045-TC; 80162-TC; 80202-TC; J7611